=== PATIENT | male | born 1980 | race Caucasian/White ===

== ENCOUNTER 2024-08-20 17:00 | Emergency (ER) | payer SELFPAY ==
[~2024-08-20] VITALS: Ht 180.3 cm; Wt 100.0 kg
[2024-08-20 17:04] VITALS: TEMP 98.1
[2024-08-20 17:29] LABS: BASOPHILS % (AUTO) 0.6 % (0.0-2.0); HEMATOCRIT 52.5 % (41-53); LYMPHOCYTES % (AUTO) 23.5 % (22.0-44.0); MEAN CORPUSCULAR HEMOGLOBIN 31.2 pg (26.0-34.0); MEAN CORPUSCULAR HGB CONC 34.3 G/dL (31.0-37.0); MEAN CORPUSCULAR VOLUME 91 fL (80-100); MONOCYTES # (AUTO) 0.8 K/uL (0.1-1.0); MONOCYTES % (AUTO) 5.8 % (2.0-9.0); NEUTROPHILS # (AUTO) 8.8 K/uL (1.8-7.7); NEUTROPHILS % (AUTO) 68.1 % (40.0-70.0); PLATELET COUNT (AUTO) 176 K/uL (150-450); RED BLOOD CELL COUNT(AUTO) 5.77 MIL/uL (4.50-5.90); RED CELL DISTRIBUTION WIDTH 14.2 % (11.5-14.5); WHITE BLOOD COUNT (AUTO) 12.9 K/uL (4.5-11.0)
[2024-08-20 17:31] LABS: APPEARANCE,URINE CLEAR (CLEAR); BILIRUBIN,URINE NEGATIVE (NEGATIVE); COLOR,URINE YELLOW (YELLOW); GLUCOSE, URINE (UA) NEGATIVE (NEGATIVE); KETONES,URINE NEGATIVE (NEGATIVE); LEUKOCYTE ESTERASE ,URINE NEGATIVE (NEGATIVE); NITRATE,URINE NEGATIVE (NEGATIVE); OCCULT BLOOD,URINE LARGE (NEGATIVE); PH,URINE 5.5 (5.0-8.0); PROTEIN,URINE TRACE mg/dL (NEGATIVE); UROBILINOGEN,URINE <=1.0 mg/dL (<=1.0)
[2024-08-20 17:42] LABS: ANION GAP 10 mmol/L (8-16); CALCIUM, TOTAL 9.2 mg/dL (8.8-10.5); CARBON DIOXIDE 26 mmol/L (22-29); CHLORIDE 104 mmol/L (98-107); CREATININE 1.15 mg/dL (0.60-1.30); GLOMERULAR FILTR. RATE CALC > 60 mL/min (>60); GLUCOSE,RANDOM 147 mg/dL (70-110); POTASSIUM 3.8 mmol/L (3.5-5.1); SODIUM SERUM 140 mmol/L (136-145); UREA NITROGEN, BLOOD 23 mg/dL (7-18)
[2024-08-20 17:49] LABS: RBC,URINE 51-100 /HPF (0-2)
[2024-08-20 17:50] LABS: BACTERIA,URINE Rare /HPF (None Seen)
[2024-08-20 18:08] LABS: ALBUMIN 3.7 g/dL (3.4-5.0); BILIRUBIN,DIRECT 0.1 mg/dL (0.00-0.20); BILIRUBIN,TOTAL 0.4 mg/dL (0.1-1.0); TOTAL PROTEIN, SERUM 7.3 g/dL (6.4-8.2)
[2024-08-20] MEDS: KETOROLAC TROMETHAMINE 30 MG/ML VIAL IVP ONE (19:32)
[2024-08-20] MEDS: SODIUM CHLORIDE 0.9% 1,000 ML IV ONE (19:32)
[2024-08-20 21:00] VITALS: BP 124/79; PULSE 80; RESP 18; O2SAT 97
[2024-08-20] MEDS: MORPHINE SULFATE 2 MG/ML SYRINGE IVP ONE (21:18)
[2024-08-20] MEDS ORDERED: SULF-261 PO (22:06)
[2024-08-20] MEDS ORDERED: IBUP-1493 PO (22:06)
[2024-08-20] MEDS: SULFAMETHOX/TRIMETH DS 800-160 MG/TABLET PO ONE (22:11)
[2024-08-20] MEDS ORDERED: HYDR-4062 PO (22:26)
== END 2024-08-20 22:33 | disposition home or self-care (01) ==
LOC: EMS 17:00
DX: N13.2 Hydronephrosis with renal and ureteral calculous obstruction (principal); F17.210 Nicotine dependence, cigarettes, uncomplicated
CPT/HCPCS: 99285; 74176; 96374; 96361; 80048; 80076; 81001; 85025; 36415; J1885; J2270; J7030